=== PATIENT | male | born 1995 | race Caucasian/White ===

== ENCOUNTER 2019-12-25 23:15 | Emergency (ER) | payer OTHER ==
--- NOTE | 2019-12-25 23:50 | NUR ---
PATIENT WAS CALLED TO BE TRIAGED. PATIENT WAS NOT PRESENT.
--- NOTE | 2019-12-26 | NUR ---
PATIENT WAS CALLED TO BE TRAIGED. PATIENT WAS NOT PRESENT.
--- NOTE | 2019-12-26 00:32 | NUR ---
PATIENT WAS CALLED TO BE TRIAGED. PATIENT NOT PRESENT. PATIENT WAS NOT TRIAGED OR SEEN BY [facility].
== END 2019-12-26 00:35 | disposition left against medical advice (07) ==
LOC: ER 23:25
DX: Z53.21 Procedure and treatment not carried out due to patient leaving prior to being seen by health care provider (principal)